=== PATIENT | male | born 1985 | race Two or more races ===

== ENCOUNTER 2024-05-06 23:30 | Emergency (ER) | payer MEDICAID ==
[~2024-05-06] VITALS: Ht 175.3 cm; Wt 95.5 kg
[2024-05-06 23:37] VITALS: BP 143/90; PULSE 74; RESP 14; TEMP 98.4; O2SAT 98
[2024-05-07] MEDS: CEPHALEXIN MONOHYDRATE 500 MG CAPSULE PO ONE (03:46)
[2024-05-07] MEDS: PERTUSS(ACELL),DIPH,TET/PF 0.5 ML SYRINGE [ADULT] IM. ONE (03:47)
[2024-05-07] MEDS ORDERED: CEPH-558 PO (04:12)
== END 2024-05-07 06:10 | disposition home or self-care (01) ==
LOC: EMS 23:30
DX: S81.839A Puncture wound without foreign body, unspecified lower leg, initial encounter (principal); Z23 Encounter for immunization; W26.9XXA Contact with unspecified sharp object(s), initial encounter; Y93.01 Activity, walking, marching and hiking; Y92.89 Other specified places as the place of occurrence of the external cause; Y99.0 Civilian activity done for income or pay
CPT/HCPCS: 90471; 90715; 99283